=== PATIENT | male | born 1935 | race Caucasian/White ===

== ENCOUNTER → 2017-12-11 | Outpatient (CLI) | payer MEDICARE ==
--- NOTE | 2017-12-11 15:49 | XR ---
EXAMINATION TYPE: XR hand complete LT DATE OF EXAM: 12/11/2017 CLINICAL HISTORY: Fall injury with pain and obvious deformity TECHNIQUE: Frontal, lateral and oblique images of the left hand are obtained. COMPARISON: None. FINDINGS: There is acute dislocation at the fifth PIP joint with impaction and ulnar angulation of d istal finger. No acute fracture is clearly evident. The joint spaces in the left hand otherwise appea r within normal limits. The overlying soft tissue appears unremarkable. IMPRESSION: There is acute dislocation fifth PIP joint without acute fracture.
== END | disposition home or self-care (01) ==
LOC: RADXRMAIN 15:21
PROVIDERS: ATTEND Internal Medicine
DX: S63.287A Dislocation of proximal interphalangeal joint of left little finger, initial encounter (principal)

== ENCOUNTER → 2017-12-13 | Outpatient (CLI) | payer MEDICARE ==
--- NOTE | 2017-12-13 11:25 | XR ---
EXAMINATION TYPE: XR hand complete LT DATE OF EXAM: 12/13/2017 COMPARISON: 12/11/2017 HISTORY: Dislocation metacarpal joint TECHNIQUE: Three-view left hand FINDINGS: No acute dislocations are evident. No fractures are evident. The proximal interphalangeal j oint space of the fifth digit appears to have normal orientation. In the lateral projection there is some subtle calcification adjacent to the joint space. Small avulsions are not excluded. IMPRESSION: 1. Small avulsions anterior proximal interphalangeal joint space left fifth digit may be present. Co rrelate with the patient's clinical symptoms. 2. Alignment and positioning of the fifth digit appears near-anatomic.
== END | disposition home or self-care (01) ==
LOC: RADXRMAIN 09:28
PROVIDERS: ATTEND Internal Medicine
DX: S63.269D Dislocation of metacarpophalangeal joint of unspecified finger, subsequent encounter (principal)